=== PATIENT | male | born 1985 | race Caucasian/White ===

== ENCOUNTER 2023-06-19 16:59 | Inpatient (IN) | payer MEDICAID ==
[~2023-06-19] VITALS: Ht 180.3 cm; Wt 73.9 kg
[2023-06-19] MEDS ORDERED: FLUO20CA36 PO (18:02)
[2023-06-19] MEDS ORDERED: BUSP15 PO (18:02)
[2023-06-19] MEDS ORDERED: CLON0.1T2 PO (18:02)
[2023-06-19] MEDS ORDERED: PANT-31 PO (18:02)
[2023-06-19] MEDS ORDERED: TRAZ-252 PO (18:02)
[2023-06-19] MEDS ORDERED: ZOLPIDEM TARTRATE 10 MG TABLET PO PRN (18:30)
[2023-06-19] MEDS ORDERED: HALOPERIDOL 5 MG TABLET PO PRN (18:30)
[2023-06-19 18:37] LABS: GLUCOMETER DEV NAME(LOC) POC.BV; POC SARS-COV2 AG, FIA NEGATIVE (NEGATIVE)
[2023-06-19] MEDS ORDERED: INFLUENZA VIRUS VACCINE QVS 2023-24 (6MO+)/PF 60 MCG/0.5 ML SYRINGE IM. ONE (18:45)
[2023-06-19] MEDS ORDERED: PNEUMOCOCCAL VACCINE POLYVALENT 0.5 ML SYRINGE [PPSV23] IM. ONE (18:45)
[2023-06-19 20:08] VITALS: BP 115/80; PULSE 84; RESP 16; TEMP 97.9; O2SAT 97
[2023-06-19] MEDS ORDERED: BENZOCAINE/MENTHOL LOZENGE PO PRN (22:15)
[2023-06-19] MEDS ORDERED: DOCUSATE SODIUM 100 MG CAPSULE PO PRN (22:15)
[2023-06-19] MEDS ORDERED: MAGNESIUM HYDROXIDE SUSPENSION 30 ML UDCUP PO PRN (22:15)
[2023-06-19] MEDS ORDERED: LOPERAMIDE HCL 2 MG CAPSULE PO PRN (22:15)
[2023-06-19] MEDS ORDERED: PETROLATUM,WHITE 28 GM JELLY TP PRN (22:15)
[2023-06-19] MEDS ORDERED: ALBUTEROL SULFATE HFA 90 MCG/PUFF 8 GM INHALER IH PRN (22:15)
[2023-06-19] MEDS ORDERED: OMEPRAZOLE 20 MG CAPSULE PO PRN (22:15)
[2023-06-19] MEDS ORDERED: CloNIDine HCL 0.1 MG TABLET PO PRN (22:15)
[2023-06-19] MEDS ORDERED: BACITRACIN 28 GM OINTMENT TP PRN (22:15)
[2023-06-19] MEDS ORDERED: IBUPROFEN 600 MG TABLET PO PRN (22:15)
[2023-06-19] MEDS ORDERED: ONDANSETRON HCL 4 MG TABLET PO PRN (22:15)
[2023-06-19] MEDS ORDERED: MAG HYDROX/ALUMINUM HYD/SIMETH ES 30 ML SUSPENSION UDCUP PO PRN (22:15)
[2023-06-20 08:36] VITALS: BP 120/81; PULSE 74; RESP 18; TEMP 98.9; O2SAT 100
[2023-06-20 08:46] LABS: BASOPHILS % (AUTO) 0.4 % (0.0-2.0); EOSINOPHILS % (AUTO) 1.5 % (1.0-6.0); HEMATOCRIT 43.1 % (41-53); HEMOGLOBIN 15.3 g/dL (13.5-17.5); LYMPHOCYTES # (AUTO) 2.2 K/uL (1.0-4.8); LYMPHOCYTES % (AUTO) 26.5 % (22.0-44.0); MEAN CORPUSCULAR HEMOGLOBIN 30.2 pg (26.0-34.0); MEAN CORPUSCULAR HGB CONC 35.4 G/dL (31.0-37.0); MEAN CORPUSCULAR VOLUME 85 fL (80-100); MONOCYTES # (AUTO) 0.6 K/uL (0.1-1.0); MONOCYTES % (AUTO) 7.4 % (2.0-9.0); NEUTROPHILS # (AUTO) 5.3 K/uL (1.8-7.7); NEUTROPHILS % (AUTO) 64.2 % (40.0-70.0); PLATELET COUNT (AUTO) 264 K/uL (150-450); RED BLOOD CELL COUNT(AUTO) 5.06 MIL/uL (4.50-5.90); RED CELL DISTRIBUTION WIDTH 13.6 % (11.5-14.5); WHITE BLOOD COUNT (AUTO) 8.3 K/uL (4.5-11.0)
[2023-06-20 09:49] LABS: ALANINE AMINOTRANSFERASE 15 U/L (12-78); ALKALINE PHOSPHATASE 80 U/L (46-116); ANION GAP 10 mmol/L (8-16); ASPARTATE AMINOTRANSFERASE 22 U/L (15-37); BILIRUBIN,TOTAL 0.7 mg/dL (0.1-1.0); CALCIUM, TOTAL 8.9 mg/dL (8.8-10.5); CARBON DIOXIDE 26 mmol/L (22-29); CHLORIDE 106 mmol/L (98-107); CHOL/HDL RATIO 3.2 (4.2-7.3); CHOLESTEROL 177 mg/dL (131-200); CREATININE 0.59 mg/dL (0.60-1.30); FREE T4 (FREE THYROXINE) 1.02 ng/dL (0.76-1.46); GLOMERULAR FILTR. RATE CALC > 60 mL/min (>60); GLUCOSE,RANDOM 75 mg/dL (70-110); HDL CHOLESTEROL 56 mg/dL (40-60); LDL CHOL (CALC.) 100 mg/dL (0-130); POTASSIUM 4.2 mmol/L (3.5-5.1); SODIUM SERUM 142 mmol/L (136-145); TOTAL PROTEIN, SERUM 7.1 g/dL (6.4-8.2); TRIGLYCERIDES 104 mg/dL (15-150); UREA NITROGEN, BLOOD 11 mg/dL (7-18)
[2023-06-20] MEDS ORDERED: CALCIUM CARBONATE 500 MG CHEWABLE TABLET CHEW PRN (10:00)
[2023-06-20] MEDS: OMEPRAZOLE 20 MG CAPSULE PO SCH (10:19)
[2023-06-20] MEDS: SUCRALFATE 1 GM/10 ML SUSPENSION UDCUP PO SCH ×2 (11:00→16:40)
[2023-06-20] MEDS: NICOTINE POLACRILEX 4 MG LOZENGE PO PRN ×2 (15:50→20:03)
[2023-06-20 20:09] VITALS: BP 110/65; PULSE 66; RESP 16; TEMP 97.8; O2SAT 97
[2023-06-21] MEDS: NICOTINE POLACRILEX 4 MG LOZENGE PO PRN ×3 (03:49→18:00)
[2023-06-21] MEDS: SUCRALFATE 1 GM/10 ML SUSPENSION UDCUP PO SCH ×3 (06:39→16:26)
[2023-06-21 08:06] VITALS: BP 128/66; PULSE 64; RESP 16; TEMP 97.6; O2SAT 100
[2023-06-21] MEDS: OMEPRAZOLE 20 MG CAPSULE PO SCH (08:28)
[2023-06-21] MEDS: FLUoxetine HCL 20 MG CAPSULE PO SCH (12:47)
[2023-06-21] MEDS: BusPIRone HCL 10 MG TABLET PO SCH ×2 (12:47→16:26)
[2023-06-21 12:55] VITALS: RESP 17
[2023-06-21] MEDS: ACETAMINOPHEN 325 MG TABLET PO PRN (12:55)
[2023-06-21 13:55] VITALS: RESP 16
[2023-06-21] MEDS: DIVALPROEX SODIUM 500 MG ER TABLET PO SCH (16:26)
[2023-06-21] MEDS: TraZODone HCL 50 MG TABLET PO SCH (20:15)
[2023-06-22 03:20] VITALS: BP 112/62; PULSE 67; RESP 17; TEMP 97.8; O2SAT 98
[2023-06-22] MEDS: SUCRALFATE 1 GM/10 ML SUSPENSION UDCUP PO SCH ×3 (06:41→16:27)
[2023-06-22] MEDS: NICOTINE POLACRILEX 4 MG LOZENGE PO PRN ×3 (06:41→17:40)
[2023-06-22 07:48] LABS: APPEARANCE,URINE CLEAR (CLEAR); BILIRUBIN,URINE NEGATIVE (NEGATIVE); COLOR,URINE LIGHT YELLOW (YELLOW); GLUCOSE, URINE (UA) NEGATIVE (NEGATIVE); KETONES,URINE NEGATIVE (NEGATIVE); LEUKOCYTE ESTERASE ,URINE NEGATIVE (NEGATIVE); NITRATE,URINE NEGATIVE (NEGATIVE); OCCULT BLOOD,URINE NEGATIVE (NEGATIVE); PROTEIN,URINE NEGATIVE (NEGATIVE); SPECIFIC GRAVITIY, URINE 1.012 (1.003-1.030); UROBILINOGEN,URINE <=1.0 mg/dL (<=1.0)
[2023-06-22 07:54] LABS: ALCOHOL, URINE DRUG SCREEN NEGATIVE (NEGATIVE); AMPHET/METH SCREEN,URINE NEGATIVE (NEGATIVE); BARBITURATE SCREEN, URINE NEGATIVE (NEGATIVE); BENZODIAZEPINES SCREEN,URINE NEGATIVE (NEGATIVE); CANNABINOID SCREEN,URINE POSITIVE (NEGATIVE); COCAINE SCREEN,URINE NEGATIVE (NEGATIVE); METHADONE SCREEN, URINE NEGATIVE (NEGATIVE); OPIATE SCREEN,URINE NEGATIVE (NEGATIVE); PHENCYCLIDINE SCREEN,URINE NEGATIVE (NEGATIVE)
[2023-06-22 08:08] VITALS: BP 125/73; PULSE 69; RESP 16; TEMP 97.8; O2SAT 100
[2023-06-22] MEDS: DIVALPROEX SODIUM 500 MG ER TABLET PO SCH ×2 (08:18→16:28)
[2023-06-22] MEDS: OMEPRAZOLE 20 MG CAPSULE PO SCH (08:18)
[2023-06-22] MEDS: BusPIRone HCL 10 MG TABLET PO SCH ×3 (08:18→16:28)
[2023-06-22] MEDS: FLUoxetine HCL 20 MG CAPSULE PO SCH (08:18)
[2023-06-22] MEDS: TraZODone HCL 50 MG TABLET PO SCH (20:23)
[2023-06-22 20:41] VITALS: RESP 17
[2023-06-22] MEDS: LORazepam 2 MG TABLET PO PRN (20:41)
[2023-06-22] MEDS: ACETAMINOPHEN 325 MG TABLET PO PRN (20:41)
[2023-06-22 21:41] VITALS: RESP 16
[2023-06-23] MEDS: NICOTINE POLACRILEX 4 MG LOZENGE PO PRN ×4 (05:49→16:22)
[2023-06-23] MEDS: SUCRALFATE 1 GM/10 ML SUSPENSION UDCUP PO SCH ×3 (06:36→16:14)
[2023-06-23] MEDS: DIVALPROEX SODIUM 500 MG ER TABLET PO SCH ×2 (08:04→16:14)
[2023-06-23] MEDS: OMEPRAZOLE 20 MG CAPSULE PO SCH (08:04)
[2023-06-23] MEDS: FLUoxetine HCL 20 MG CAPSULE PO SCH (08:04)
[2023-06-23 08:12] VITALS: BP 128/86; PULSE 83; RESP 16; TEMP 97.1; O2SAT 98
[2023-06-23] MEDS: BusPIRone HCL 10 MG TABLET PO SCH ×3 (08:42→16:14)
[2023-06-23 15:23] VITALS: RESP 16; O2SAT 98
[2023-06-23] MEDS: ACETAMINOPHEN 325 MG TABLET PO PRN ×2 (15:23→20:18)
[2023-06-23 16:23] VITALS: RESP 16; O2SAT 98
[2023-06-23] MEDS: TraZODone HCL 50 MG TABLET PO SCH (20:05)
[2023-06-23] MEDS: LORazepam 2 MG TABLET PO PRN (20:15)
[2023-06-23 20:18] VITALS: BP 120/85; PULSE 70; PULSE 75; PULSE 79; RESP 17; TEMP 97; TEMP 97.5; O2SAT 99
[2023-06-23 20:19] VITALS: BP 120/85; PULSE 79; RESP 17; TEMP 97.5; O2SAT 99
[2023-06-23 21:19] VITALS: RESP 16
[2023-06-24] MEDS: NICOTINE POLACRILEX 4 MG LOZENGE PO PRN ×4 (05:21→21:57)
[2023-06-24] MEDS: SUCRALFATE 1 GM/10 ML SUSPENSION UDCUP PO SCH ×3 (06:31→16:13)
[2023-06-24] MEDS: ACETAMINOPHEN 325 MG TABLET PO PRN (07:06)
[2023-06-24 08:06] VITALS: RESP 16
[2023-06-24] MEDS: DIVALPROEX SODIUM 500 MG ER TABLET PO SCH ×2 (08:13→16:19)
[2023-06-24] MEDS: OMEPRAZOLE 20 MG CAPSULE PO SCH (08:13)
[2023-06-24] MEDS: FLUoxetine HCL 20 MG CAPSULE PO SCH (08:13)
[2023-06-24] MEDS: BusPIRone HCL 10 MG TABLET PO SCH ×3 (08:13→16:13)
[2023-06-24 08:24] VITALS: BP 118/84; PULSE 81; RESP 18; TEMP 97.5; O2SAT 100
[2023-06-24 21:09] VITALS: BP 133/84; PULSE 87; RESP 18; TEMP 97.7
[2023-06-24] MEDS: TraZODone HCL 50 MG TABLET PO SCH (21:57)
[2023-06-25] MEDS: SUCRALFATE 1 GM/10 ML SUSPENSION UDCUP PO SCH ×3 (06:35→16:28)
[2023-06-25 08:44] VITALS: BP 106/69; PULSE 77; RESP 18; TEMP 98.5; O2SAT 97
[2023-06-25] MEDS: FLUoxetine HCL 20 MG CAPSULE PO SCH (08:53)
[2023-06-25] MEDS: OMEPRAZOLE 20 MG CAPSULE PO SCH (08:54)
[2023-06-25] MEDS: DIVALPROEX SODIUM 500 MG ER TABLET PO SCH ×2 (08:54→16:30)
[2023-06-25] MEDS: BusPIRone HCL 10 MG TABLET PO SCH ×3 (08:54→16:31)
[2023-06-25] MEDS: NICOTINE POLACRILEX 4 MG LOZENGE PO PRN ×3 (08:57→20:21)
[2023-06-25] MEDS: TraZODone HCL 50 MG TABLET PO SCH (20:20)
[2023-06-25 21:34] VITALS: BP 105/68; PULSE 62; RESP 18; TEMP 97.7; O2SAT 97
[2023-06-26] MEDS: SUCRALFATE 1 GM/10 ML SUSPENSION UDCUP PO SCH ×3 (06:18→16:10)
[2023-06-26 08:30] VITALS: BP 132/90; PULSE 77; RESP 19; TEMP 97.5; O2SAT 99
[2023-06-26] MEDS: FLUoxetine HCL 20 MG CAPSULE PO SCH (08:59)
[2023-06-26] MEDS: BusPIRone HCL 10 MG TABLET PO SCH ×3 (08:59→16:36)
[2023-06-26] MEDS: OMEPRAZOLE 20 MG CAPSULE PO SCH (09:00)
[2023-06-26] MEDS: DIVALPROEX SODIUM 500 MG ER TABLET PO SCH ×2 (09:00→16:36)
[2023-06-26] MEDS: NICOTINE POLACRILEX 4 MG LOZENGE PO PRN ×2 (09:03→14:01)
[2023-06-26] MEDS ORDERED: OMEP20 PO (16:12)
== END 2023-06-26 16:55 | disposition home or self-care (01) | DRG 753 ==
LOC: B2S 18:24
PROVIDERS: ADMIT Psychiatry & Neurology Psychiatry; ATTEND Psychiatry & Neurology Psychiatry
DX: F31.9 Bipolar disorder, unspecified (principal); F19.10 Other psychoactive substance abuse, uncomplicated; F41.9 Anxiety disorder, unspecified; K21.9 Gastro-esophageal reflux disease without esophagitis; G47.00 Insomnia, unspecified; Z20.822 Contact with and (suspected) exposure to COVID-19; K59.00 Constipation, unspecified; Z59.00 Homelessness unspecified; Z79.899 Other long term (current) drug therapy
CPT/HCPCS: 80053; 80061; 80164; 80307; 81003; 83036; 84439; 84443; 85025; 87081; 90686; 90732; Q9967

== ENCOUNTER 2023-07-11 13:37 | Inpatient (IN) | payer MEDICAID ==
[~2023-07-11] VITALS: Ht 180.3 cm; Wt 75.3 kg
[~2023-07-11 13:37] MED LIST: BUSP15 PO; FLUO20CA36 PO; OMEP20 PO; TRAZ-252 PO
[2023-07-11 15:58] LABS: ANION GAP 14 mmol/L (8-16); BASOPHILS % (AUTO) 0.7 % (0.0-2.0); CALCIUM, TOTAL 9.7 mg/dL (8.8-10.5); CARBON DIOXIDE 25 mmol/L (22-29); CHLORIDE 100 mmol/L (98-107); CREATININE 0.59 mg/dL (0.60-1.30); EOSINOPHILS % (AUTO) 0.9 % (1.0-6.0); GLOMERULAR FILTR. RATE CALC > 60 mL/min (>60); GLUCOSE,RANDOM 81 mg/dL (70-110); HEMATOCRIT 46.2 % (41-53); HEMOGLOBIN 16.3 g/dL (13.5-17.5); LYMPHOCYTES # (AUTO) 2.9 K/uL (1.0-4.8); LYMPHOCYTES % (AUTO) 24.7 % (22.0-44.0); MEAN CORPUSCULAR HGB CONC 35.4 G/dL (31.0-37.0); MEAN CORPUSCULAR VOLUME 85 fL (80-100); MONOCYTES # (AUTO) 0.7 K/uL (0.1-1.0); MONOCYTES % (AUTO) 5.9 % (2.0-9.0); NEUTROPHILS # (AUTO) 7.9 K/uL (1.8-7.7); NEUTROPHILS % (AUTO) 67.8 % (40.0-70.0); PLATELET COUNT (AUTO) 382 K/uL (150-450); POTASSIUM 3.5 mmol/L (3.5-5.1); RED BLOOD CELL COUNT(AUTO) 5.44 MIL/uL (4.50-5.90); RED CELL DISTRIBUTION WIDTH 13.8 % (11.5-14.5); SODIUM SERUM 139 mmol/L (136-145); UREA NITROGEN, BLOOD 4 mg/dL (7-18); WHITE BLOOD COUNT (AUTO) 11.6 K/uL (4.5-11.0)
[2023-07-11 16:04] LABS: ALANINE AMINOTRANSFERASE 30 U/L (12-78); ALBUMIN 4.6 g/dL (3.4-5.0); ALKALINE PHOSPHATASE 80 U/L (46-116); ASPARTATE AMINOTRANSFERASE 19 U/L (15-37); BILIRUBIN,TOTAL 0.3 mg/dL (0.1-1.0); TOTAL PROTEIN, SERUM 7.7 g/dL (6.4-8.2)
[2023-07-11] MEDS ORDERED: ZOLPIDEM TARTRATE 10 MG TABLET PO PRN (16:15)
[2023-07-11 16:36] LABS: ALCOHOL, BLOOD (SERUM) 20 mg/dL (0-10)
[2023-07-11 16:40] LABS: COVID AG,FIA SOURCE NASAL SWAB
[2023-07-11 17:16] LABS: SARS-COV2 (COVID) ANTIGEN,FIA Negative (Negative)
[2023-07-11] MEDS: LORazepam 2 MG TABLET PO PRN (18:23)
[2023-07-12 01:25] VITALS: BP 117/84; PULSE 82; RESP 18; TEMP 97.5
[2023-07-12] MEDS ORDERED: MAG HYDROX/ALUMINUM HYD/SIMETH ES 30 ML SUSPENSION UDCUP PO PRN (05:45)
[2023-07-12] MEDS ORDERED: CloNIDine HCL 0.1 MG TABLET PO PRN (05:45)
[2023-07-12] MEDS ORDERED: DOCUSATE SODIUM 100 MG CAPSULE PO PRN (05:45)
[2023-07-12] MEDS ORDERED: ONDANSETRON HCL 4 MG TABLET PO PRN (05:45)
[2023-07-12] MEDS ORDERED: MAGNESIUM HYDROXIDE SUSPENSION 30 ML UDCUP PO PRN (05:45)
[2023-07-12] MEDS ORDERED: PETROLATUM,WHITE 28 GM JELLY TP PRN (05:45)
[2023-07-12] MEDS ORDERED: OMEPRAZOLE 20 MG CAPSULE PO PRN (05:45)
[2023-07-12] MEDS ORDERED: LOPERAMIDE HCL 2 MG CAPSULE PO PRN (05:45)
[2023-07-12] MEDS ORDERED: ALBUTEROL SULFATE HFA 90 MCG/PUFF 8 GM INHALER IH PRN (05:45)
[2023-07-12] MEDS ORDERED: BACITRACIN 28 GM OINTMENT TP PRN (05:45)
[2023-07-12] MEDS: IBUPROFEN 600 MG TABLET PO PRN ×2 (08:52→18:14)
[2023-07-12] MEDS: NICOTINE 21 MG/24 HOUR PATCH TD SCH (08:52)
[2023-07-12] MEDS: LORazepam 2 MG TABLET PO PRN ×2 (08:52→18:14)
[2023-07-12 08:53] VITALS: BP 105/65; PULSE 71; RESP 18; TEMP 97.6
[2023-07-12 09:53] VITALS: BP 111/71; PULSE 71; RESP 17; TEMP 98
[2023-07-12] MEDS: DIVALPROEX SODIUM 500 MG ER TABLET PO SCH ×2 (10:49→16:19)
[2023-07-12] MEDS: FLUoxetine HCL 20 MG CAPSULE PO SCH (10:49)
[2023-07-12] MEDS: BusPIRone HCL 10 MG TABLET PO SCH ×2 (12:15→16:19)
[2023-07-12 18:14] VITALS: BP 116/78; PULSE 78; RESP 17; TEMP 98
[2023-07-12] MEDS: HALOPERIDOL 5 MG TABLET PO PRN (18:14)
[2023-07-12 19:14] VITALS: BP 114/78; PULSE 69; RESP 18; TEMP 97.5
[2023-07-12 20:01] VITALS: BP 132/81; PULSE 62; RESP 18; TEMP 98.1
[2023-07-12] MEDS: TraZODone HCL 50 MG TABLET PO SCH (21:00)
[2023-07-12 22:22] LABS: APPEARANCE,URINE CLEAR (CLEAR); BILIRUBIN,URINE NEGATIVE (NEGATIVE); COLOR,URINE LIGHT YELLOW (YELLOW); GLUCOSE, URINE (UA) NEGATIVE (NEGATIVE); KETONES,URINE NEGATIVE (NEGATIVE); LEUKOCYTE ESTERASE ,URINE NEGATIVE (NEGATIVE); NITRATE,URINE NEGATIVE (NEGATIVE); OCCULT BLOOD,URINE NEGATIVE (NEGATIVE); PROTEIN,URINE NEGATIVE (NEGATIVE); SPECIFIC GRAVITIY, URINE 1.009 (1.003-1.030); UROBILINOGEN,URINE <=1.0 mg/dL (<=1.0)
[2023-07-12 22:48] LABS: ALCOHOL, URINE DRUG SCREEN NEGATIVE (NEGATIVE); AMPHET/METH SCREEN,URINE NEGATIVE (NEGATIVE); BARBITURATE SCREEN, URINE NEGATIVE (NEGATIVE); CANNABINOID SCREEN,URINE NEGATIVE (NEGATIVE); COCAINE SCREEN,URINE NEGATIVE (NEGATIVE); METHADONE SCREEN, URINE NEGATIVE (NEGATIVE); OPIATE SCREEN,URINE NEGATIVE (NEGATIVE); PHENCYCLIDINE SCREEN,URINE NEGATIVE (NEGATIVE)
[2023-07-12 22:57] LABS: BENZODIAZEPINES SCREEN,URINE NEGATIVE (NEGATIVE)
[2023-07-13 09:00] VITALS: BP 109/71; PULSE 65; TEMP 96
[2023-07-13] MEDS: DIVALPROEX SODIUM 500 MG ER TABLET PO SCH ×2 (10:02→16:53)
[2023-07-13] MEDS: FLUoxetine HCL 20 MG CAPSULE PO SCH (10:02)
[2023-07-13] MEDS: NICOTINE 21 MG/24 HOUR PATCH TD SCH (10:03)
[2023-07-13] MEDS: BusPIRone HCL 10 MG TABLET PO SCH ×3 (10:05→16:53)
[2023-07-13 20:34] VITALS: BP 111/73; PULSE 77; TEMP 97.7
[2023-07-13] MEDS: TraZODone HCL 50 MG TABLET PO SCH (20:55)
[2023-07-14] MEDS: FLUoxetine HCL 20 MG CAPSULE PO SCH (09:56)
[2023-07-14] MEDS: BusPIRone HCL 10 MG TABLET PO SCH ×3 (09:56→16:38)
[2023-07-14] MEDS: DIVALPROEX SODIUM 500 MG ER TABLET PO SCH ×2 (10:06→16:38)
[2023-07-14] MEDS: NICOTINE 21 MG/24 HOUR PATCH TD SCH (10:09)
[2023-07-14 10:14] VITALS: RESP 18
[2023-07-14] MEDS: BENZOCAINE/MENTHOL LOZENGE PO PRN (13:31)
[2023-07-14] MEDS: LORazepam 2 MG TABLET PO PRN (15:44)
[2023-07-14] MEDS: HALOPERIDOL 5 MG TABLET PO PRN (15:44)
[2023-07-14 20:33] VITALS: BP 107/56; PULSE 84; RESP 18; TEMP 97
[2023-07-14] MEDS: TraZODone HCL 50 MG TABLET PO SCH (21:22)
[2023-07-15] MEDS: BusPIRone HCL 10 MG TABLET PO SCH ×3 (09:05→16:03)
[2023-07-15] MEDS: FLUoxetine HCL 20 MG CAPSULE PO SCH (09:05)
[2023-07-15] MEDS: DIVALPROEX SODIUM 500 MG ER TABLET PO SCH ×2 (09:06→16:03)
[2023-07-15 09:10] VITALS: BP 126/73; PULSE 78; RESP 18; TEMP 97.3
[2023-07-15] MEDS: NICOTINE 21 MG/24 HOUR PATCH TD SCH (09:15)
[2023-07-15] MEDS: BENZOCAINE/MENTHOL LOZENGE PO PRN (14:11)
[2023-07-15 20:53] VITALS: BP 105/63; PULSE 73; RESP 18; TEMP 97
[2023-07-15 21:00] VITALS: BP 118/70; PULSE 80; RESP 18; TEMP 97.1
[2023-07-15] MEDS: TraZODone HCL 50 MG TABLET PO SCH (21:02)
[2023-07-15] MEDS: ACETAMINOPHEN 325 MG TABLET PO PRN (21:02)
[2023-07-15 22:02] VITALS: BP 110/70; PULSE 72; RESP 19; TEMP 97.6
[2023-07-16 08:05] VITALS: BP 128/76; PULSE 73; RESP 18; TEMP 97
[2023-07-16] MEDS: NICOTINE 21 MG/24 HOUR PATCH TD SCH (08:08)
[2023-07-16] MEDS: DIVALPROEX SODIUM 500 MG ER TABLET PO SCH ×2 (08:09→16:18)
[2023-07-16] MEDS: FLUoxetine HCL 20 MG CAPSULE PO SCH (08:09)
[2023-07-16] MEDS: BusPIRone HCL 10 MG TABLET PO SCH ×3 (08:09→16:18)
[2023-07-16] MEDS: ACETAMINOPHEN 325 MG TABLET PO PRN (08:09)
[2023-07-16] MEDS: TraZODone HCL 50 MG TABLET PO SCH (20:55)
[2023-07-16 22:08] VITALS: BP 119/72; PULSE 73; RESP 18; TEMP 97.7
[2023-07-17] MEDS: BusPIRone HCL 10 MG TABLET PO SCH ×3 (09:05→16:35)
[2023-07-17] MEDS: FLUoxetine HCL 20 MG CAPSULE PO SCH (09:05)
[2023-07-17] MEDS: DIVALPROEX SODIUM 500 MG ER TABLET PO SCH ×2 (09:05→16:34)
[2023-07-17] MEDS: NICOTINE 21 MG/24 HOUR PATCH TD SCH (09:50)
[2023-07-17 09:59] VITALS: BP 125/70; PULSE 76; RESP 18; TEMP 97.5
[2023-07-17 20:40] VITALS: BP 108/77; PULSE 71; RESP 18; TEMP 97.6
[2023-07-17] MEDS: TraZODone HCL 50 MG TABLET PO SCH (21:30)
[2023-07-18] MEDS: BusPIRone HCL 10 MG TABLET PO SCH ×3 (08:21→16:02)
[2023-07-18] MEDS: FLUoxetine HCL 20 MG CAPSULE PO SCH (08:21)
[2023-07-18] MEDS: DIVALPROEX SODIUM 500 MG ER TABLET PO SCH ×2 (08:21→16:02)
[2023-07-18] MEDS: NICOTINE 21 MG/24 HOUR PATCH TD SCH (09:16)
[2023-07-18 10:12] VITALS: BP 102/67; PULSE 68; RESP 16; TEMP 97.3
[2023-07-18] MEDS ORDERED: DIVA500T53 PO (18:01)
== END 2023-07-18 19:02 | disposition home or self-care (01) | DRG 753 ==
LOC: EMS 13:46 → 3EX 17:29
PROVIDERS: ADMIT Psychiatry & Neurology Psychiatry; ATTEND Psychiatry & Neurology Psychiatry
DX: F31.9 Bipolar disorder, unspecified (principal); F10.10 Alcohol abuse, uncomplicated; F41.9 Anxiety disorder, unspecified; F12.10 Cannabis abuse, uncomplicated; Z20.822 Contact with and (suspected) exposure to COVID-19; K59.00 Constipation, unspecified; G47.00 Insomnia, unspecified; K21.9 Gastro-esophageal reflux disease without esophagitis; F17.210 Nicotine dependence, cigarettes, uncomplicated; T43.96XA Underdosing of unspecified psychotropic drug, initial encounter; Y92.89 Other specified places as the place of occurrence of the external cause; Z79.899 Other long term (current) drug therapy
CPT/HCPCS: 80053; 80164; 80307; 81003; 85025; 87081; 99285; G0378; G0480